=== PATIENT | male | born 1990 | race Caucasian/White ===

== ENCOUNTER 2024-11-16 16:28 | Emergency (ER) | payer SELFPAY ==
[~2024-11-16] VITALS: Ht 180.3 cm; Wt 74.8 kg
[2024-11-16 19:04] LABS: ASPARTATE AMINOTRANSFERASE 33.0 U/L (15-37); CALCIUM, SERUM 9.8 mg/dL (8.5-10.1); CREATININE 1.2 mg/dL (0.6-1.3); SODIUM SERUM 140.0 mmol/L (136-145); TOTAL PROTEIN, SERUM 8.5 g/dL (6.4-8.2); UREA NITROGEN, BLOOD 12.0 mg/dL (7-18)
[2024-11-16 19:12] LABS: PLATELET COUNT (AUTO) 364 K/uL (150-450); RED BLOOD CELL COUNT(AUTO) 6.34 MIL/uL (4.5-6.0); RED CELL DISTRIBUTION WIDTH 12.5 % (11.5-15.0); WHITE BLOOD COUNT (AUTO) 10.0 K/uL (4.3-11.0)
[2024-11-16] MEDS ORDERED: POLY17PO4 PO (19:30)
[2024-11-16 20:28] VITALS: BP 128/83; TEMP 98; O2SAT 98
== END 2024-11-16 20:28 | disposition home or self-care (01) ==
LOC: ER 16:33
DX: K59.04 Chronic idiopathic constipation (principal); F17.200 Nicotine dependence, unspecified, uncomplicated; Z87.19 Personal history of other diseases of the digestive system; Z60.2 Problems related to living alone
CPT/HCPCS: 36415; 74021; 80048-TC; 80076-TC; 85025-TC